=== PATIENT | female | born 1970 | race Caucasian/White ===

== ENCOUNTER 2018-09-09 05:57 | Day surgery (SDC) | payer OTHER ==
[~2018-09-09] VITALS: Ht 160 cm; Wt 69.5 kg
[~2018-09-09 05:57] MED LIST: BECL10.62 IH; OMEP20 PO; SODIUM CHLORIDE 0.9% 1,000 ML IV ONE
[2018-09-09] MEDS ORDERED: BENZOCAINE 20% 50 MCG/SPRAY 57 GM TP ONE (05:58)
[2018-09-09] MEDS ORDERED: ALBUTEROL SULFATE 2.5 MG/0.5 ML NEB SOLUTION NEB ONE (05:58)
[2018-09-09] MEDS ORDERED: LIDOCAINE 4% 50 ML SOLUTION TP ONE (05:58)
[2018-09-09] MEDS ORDERED: LIDOCAINE 2% 30 ML JELLY TP ONE (05:58)
[2018-09-09] MEDS: SODIUM CHLORIDE 0.9% 1,000 ML IV ONE (06:38)
[2018-09-09] MEDS ORDERED: FentaNYL CITRATE-PF 100 MCG/2 ML VIAL ONE (07:55)
[2018-09-09] MEDS ORDERED: MIDAZOLAM HCL 2 MG/2 ML VIAL ONE (07:55)
[2018-09-09] MEDS ORDERED: MethylPREDNISolone SOD SUCC 125 MG/2 ML VIAL ONE (08:34)
[2018-09-09] MEDS: MethylPREDNISolone SOD SUCC 125 MG/2 ML VIAL IVP ONE (08:35)
[2018-09-09] MEDS ORDERED: OXYGEN THERAPY IH SCH (20:00)
== END 2018-09-09 10:15 | disposition home or self-care (01) ==
LOC: SURGERY 05:57
PROVIDERS: ATTEND Internal Medicine Critical Care Medicine
DX: J38.4 Edema of larynx (principal); B37.0 Candidal stomatitis; J44.9 Chronic obstructive pulmonary disease, unspecified; Z90.710 Acquired absence of both cervix and uterus; Z87.891 Personal history of nicotine dependence; Z79.899 Other long term (current) drug therapy; Z98.890 Other specified postprocedural states
CPT/HCPCS: 31623; 31624; 87015; 87070; 87101; 87205; 87206; 87220; 88108; 88312; J2250; J2930; J3010; J7030